=== PATIENT | female | born 2000 | race Hispanic/Latino ===

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

== ENCOUNTER 2021-06-14 18:38 | Emergency (ER) | payer BC ==
[~2021-06-14] VITALS: Ht 167.6 cm; Wt 106.1 kg
[2021-06-14 19:48] VITALS: BP 150/94
== END 2021-06-14 19:50 | disposition home or self-care (01) ==
LOC: ER 18:45
DX: R07.89 Other chest pain (principal); F41.9 Anxiety disorder, unspecified
CPT/HCPCS: 71045; 93005; 99282

== ENCOUNTER 2024-02-29 08:05 | Emergency (ER) | payer BC, OTHER ==
[~2024-02-29] VITALS: Ht 167.6 cm; Wt 114.8 kg
[2024-02-29 08:20] VITALS: PULSE 80; RESP 18; TEMP 99.1; O2SAT 100
[2024-02-29] MEDS ORDERED: ESCITALOPRAM OX10 MG (08:35)
== END 2024-02-29 09:10 | disposition home or self-care (01) ==
LOC: ER 08:09
DX: R50.9 Fever, unspecified (principal); R07.89 Other chest pain; I10 Essential (primary) hypertension; F41.9 Anxiety disorder, unspecified; F32.A Depression, unspecified; R94.31 Abnormal electrocardiogram [ECG] [EKG]
CPT/HCPCS: 93005; 99282

== ENCOUNTER 2024-08-29 18:33 | Emergency (ER) | payer BC, OTHER ==
[~2024-08-29] VITALS: Ht 165.1 cm; Wt 110.2 kg
[~2024-08-29 18:33] MED LIST: ESCITALOPRAM OX10 MG
[2024-08-29 18:38] VITALS: TEMP 99.1
[2024-08-29 21:05] LABS: BASOPHILS # (AUTO) 0.1 (0.0-0.1); BASOPHILS % 0.4 % (0.0-1.0); EOSINOPHILS # (AUTO) 0.3 (0.0-0.4); EOSINOPHILS % 1.8 % (0.0-6.0); HEMATOCRIT 38.2 % (34.2-44.1); HEMOGLOBIN 13.1 g/dL (12.0-16.0); LYMPHOCYTES # (AUTO) 3.1 (1.0-3.2); LYMPHOCYTES % 18.3 % (18.0-39.1); MEAN CORPUSCULAR HEMOGLOBIN 28.9 pg (28-32); MEAN CORPUSCULAR HGB CONC 34.3 g/dL (31-35); MEAN CORPUSCULAR VOLUME 84.3 fL (81-99); MONOCYTES # (AUTO) 0.7 (0.2-0.8); MONOCYTES % 4.1 % (4.4-11.3); NEUTROPHILS # (AUTO) 12.9 (2.1-6.9); NEUTROPHILS % 75.1 % (38.7-80.0); PLATELET COUNT 342 x10e3/uL (140-360); RED BLOOD COUNT 4.53 x10e6/uL (3.6-5.1); RED CELL DISTRIBUTION WIDTH 12.9 % (11.7-14.4); WHITE BLOOD COUNT 17.11 x10e3/uL (4.8-10.8)
[2024-08-29 21:16] LABS: AMPHETAMINES SCREEN,URINE NEGATIVE (NEGATIVE); BENZODIAZEPINES SCREEN,URINE NEGATIVE (NEGATIVE); CANNABINOIDS SCREEN,URINE NEGATIVE (NEGATIVE); COCAINE SCREEN,URINE NEGATIVE (NEGATIVE); METHADONE SCREEN, URINE NEGATIVE (NEGATIVE); OPIATES SCREEN,URINE NEGATIVE (NEGATIVE); PHENCYCLIDINE SCREEN,URINE NEGATIVE (NEGATIVE); PREGNANCY TEST, URINE NEGATIVE (NEGATIVE)
[2024-08-29 21:26] LABS: ALANINE AMINOTRANSFERASE 14 IU/L (0-55); ALBUMIN 4.2 g/dL (3.5-5.0); ALBUMIN/GLOBULIN RATIO 1.3 (0.8-2.0); ALKALINE PHOSPHATASE 84 IU/L (40-150); ANION GAP 14.4 mmol/L (8-16); BILIRUBIN,TOTAL 0.6 mg/dL (0.2-1.2); BLOOD UREA NITROGEN 10 mg/dL (7-26); BUN/CREATININE RATIO 14 (6-25); CALCIUM 8.9 mg/dL (8.4-10.2); CARBON DIOXIDE 20 mmol/L (22-29); CHLORIDE 106 mmol/L (98-107); CREATINE KINASE 67 IU/L (29-168); CREATININE, SERUM 0.71 mg/dL (0.57-1.11); EST GLOMERULAR FILTRATION RATE 121 ML/MIN (>=60); GLUCOSE 91 mg/dL (74-118); SODIUM 137 mmol/L (136-145); TOTAL PROTEIN 7.5 g/dL (6.5-8.1)
[2024-08-29 21:27] LABS: POTASSIUM 3.4 mmol/L (3.5-5.1)
[2024-08-29 21:35] LABS: TROPONIN I < 0.001 ng/mL (0-0.300)
[2024-08-29] MEDS ORDERED: ASPIRIN 81 MG CHEW TAB ONE (22:16)
[2024-08-29] MEDS: ASPIRIN 81 MG CHEW TAB PO ONE (22:26)
[2024-08-29] MEDS: HYDRALAZINE HCL 20 MG/ML VIAL IV STA (22:26)
[2024-08-29] MEDS ORDERED: CLONIDINE HCL 0.1 MG TAB ONE (23:10)
[2024-08-29] MEDS ORDERED: SODIUM CHLORIDE 0.9% 1000ML 1,000 ML ONE (23:10)
[2024-08-29] MEDS ORDERED: IOPAMIDOL 370 MG/ML 100 ML INFUS..BTL INJ ONE (23:13)
[2024-08-29] MEDS ORDERED: NICARDIPINE 20MG/200ML PREMIX 200 ML IV SCH (23:15)
[2024-08-29 23:20] VITALS: BP 239/110
[2024-08-29] MEDS: SODIUM CHLORIDE 0.9% 1000ML 1,000 ML IV STA (23:20)
[2024-08-29] MEDS: CLONIDINE HCL 0.1 MG TAB PO STA (23:20)
[2024-08-30] MEDS ORDERED: ONDANSETRON HCL INJ 2MG/ML 2ML 2 MG/ML VIAL ONE (00:15)
[2024-08-30] MEDS: ONDANSETRON HCL INJ 2MG/ML 2ML 2 MG/ML VIAL IV STA (00:30)
[2024-08-30] MEDS ORDERED: CLONIDINE HCL0.1 MG PO (00:47)
[2024-08-30 01:00] VITALS: PULSE 59; RESP 17; O2SAT 99
[2024-08-30] MEDS ORDERED: CLONIDINE HCL0.2 MG PO (20:43)
== END 2024-08-30 01:10 | disposition home or self-care (01) ==
LOC: ER 18:37
DX: I16.0 Hypertensive urgency (principal); R07.89 Other chest pain; I10 Essential (primary) hypertension; F41.9 Anxiety disorder, unspecified; F32.A Depression, unspecified
CPT/HCPCS: 36415; 71045; 71260; 80053; 80307; 81025; 82550; 83690; 83880; 84484; 85025; 85379; 93005; 99284; J0360; J2405; J7030; Q9967

== ENCOUNTER 2024-11-11 07:37 | Emergency (ER) | payer OTHER ==
[~2024-11-11] VITALS: Ht 165.1 cm; Wt 108.9 kg
[~2024-11-11 07:37] MED LIST changes: +CEFDINIR300 MG PO; +CLONIDINE HCL0.1 MG PO; +CLONIDINE HCL0.2 MG PO
[2024-11-11 07:58] VITALS: PULSE 74; RESP 18; TEMP 97.3; O2SAT 100
== END 2024-11-11 08:29 | disposition home or self-care (01) ==
LOC: ER 08:10
DX: U07.1 COVID-19 (principal); R05.9 Cough, unspecified; I10 Essential (primary) hypertension; F41.9 Anxiety disorder, unspecified; F32.A Depression, unspecified
CPT/HCPCS: 99282